=== PATIENT | male | born 1945 | race African-American/Black ===

== ENCOUNTER 2023-01-11 12:49 | Outpatient (REF) | payer OTHER, SELFPAY ==
[2023-01-11 16:40] LABS: Anion Gap 12 (12-20); Blood Urea Nitrogen 18 mg/dL (9-16); Calcium 9.6 mg/dL (8.4-10.2); Carbon Dioxide 28 mmol/L (22-29); Chloride 106 mmol/L (96-108); Estimated Glomerular Filt Rate > 60; Glucose Random 165 mg/dL (60-115); Potassium 4.4 mmol/L (3.3-5.1); Sodium 142 mmol/L (135-145)
[2023-01-11 17:06] LABS: Thyroid Stimulating Hormone 0.85 uIU/mL (0.32-4.0); Vitamin B12 398 pg/mL (200-900)
[2023-01-12 12:23] LABS: Lyme Abs Screen <0.90 index
[2023-01-16 21:28] LABS: Treponema pallidum Ab FTA ABS Reactive (Nonreactive)
== END 2023-01-11 12:50 | disposition home or self-care (01) ==
LOC: HO.LAB 12:49
PROVIDERS: Visit Provider Psychiatry & Neurology Neurology
DX: G31.84 Mild cognitive impairment of uncertain or unknown etiology (principal)
CPT/HCPCS: 36415; 80048; 82607; 84443; 86617; 86618; 86780

== ENCOUNTER 2023-02-28 11:04 | Outpatient (REF) | payer OTHER, SELFPAY ==
--- NOTE | ~2023-02-28 | MR_ITS ---
EXAMINATION: MR BRAIN WITHOUT CONTRAST CLINICAL INFORMATION: 77-year-old with mild cognitive impairment. COMPARISON: None available. TECHNIQUE: Multiplanar multisequence MR imaging of the brain was done without IV contrast. FINDINGS: BRAIN VOLUME: Within normal limits within the limitations of qualitative assessment. STRUCTURAL: Partially empty sella noted, normal variant. BRAIN AND MENINGES: DWI sequence demonstrates no restricted diffusion to suggest acute or subacute cerebral ischemia. There is a single 3 mm nonspecific deep white matter T2 hyperintensity in the right centrum semiovale and a few punctate white matter T2 hyperintensities in deep left centrum semiovale white matter which are nonspecific findings. A single punctate subcortical white matter T2 hyperintensity is seen in the right posterior frontal subcortical white matter. Some patchy T2 hyperintensity is seen in the central to right central ghassan also nonspecific. These findings are most consistent with chronic ischemic microangiopathy in a patient of this age. Otherwise, the brain parenchyma is normal in morphology and signal intensity. Gradient refocused imaging demonstrates no abnormal susceptibility-weighted signal loss to suggest hemorrhage, hemosiderin staining or abnormal mineralization. No extra-axial fluid collections, space-occupying process or mass effect. Fish-white matter interface is preserved. VENTRICLES AND SUBARACHNOID SPACES: The ventricular system and subarachnoid spaces are within normal range; there is no hydrocephalus. ORBITAL STRUCTURES: Bilateral lens extractions are noted. Mild nonspecific bilateral proptosis is suspected. Otherwise, the visualized orbital structures are grossly unremarkable within the limitations of the study. VASCULAR: Signal voids are noted in the visualized major intracranial vessels. OSSEOUS STRUCTURES, SINUSES/MASTOIDS, EXTRACRANIAL SOFT TISSUES: Unremarkable. MR/MR head/brain wo con IMPRESSION: 1. 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 2. No acute intracranial process. No evidence for infarction, hemorrhage, extra-axial fluid collection, space-occupying process, mass effect or hydrocephalus. 3. No definite disproportionate global or regional brain parenchymal volume loss within the limitations of a qualitative assessment. 4. Nonspecific mild bilateral proptosis. Correlate with examination and clinical history.
== END 2023-02-28 11:05 | disposition home or self-care (01) ==
LOC: HO.MRI 11:04
PROVIDERS: PCP Nurse Practitioner Family; Visit Provider Psychiatry & Neurology Neurology
DX: G31.84 Mild cognitive impairment of uncertain or unknown etiology (principal)
CPT/HCPCS: 70551